=== PATIENT | male | born 1955 | race Caucasian/White ===

== ENCOUNTER 2019-05-29 04:44 | Inpatient (IN) | payer MEDICARE, MEDICAID ==
[2019-05-29] MEDS ORDERED: OLANzapine TAB*ODT* 10 MG TAB PO ONE (05:05)
--- NOTE | 2019-05-29 05:14 | ED ---
Psychiatric Complaint - HPI Summary HPI Summary: Pt is a 63 y/o M presenting to the ED with a chief psychiatric complaint. LEVEL 5 CAVEAT: Pts full hx and physical is limited d/t altered mental status. Per pt s brother, the pt has a long hx of mental illness beginning in his teens. He has a hx of delusional issues, and hes done reasonably well over the years. Since February, hes had increasingly worsening delusions and paranoia. [facility] Brother is unaware of why he was admitted or what happened while he was there. He was admitted for 3 days. - History Of Current Complaint Chief Complaint: EDMentalHealth Time Seen by Provider: 05/29/19 05:05 Accompanied By: brother Hx Obtained From: Family/Plant Production Worker - brother Onset/Duration: Gradual Onset, Lasting Weeks, Still Present Severity Initially: Moderate Severity Currently: Severe Character: Manic, Anxious Aggravating Factor(s): Nothing Alleviating Factor(s): Nothing Associated Signs And Symptoms: Positive: Hostile, Paranoid Behavior Related History: Positive For: Prior Psychiatric Issues - Allergies/Home Medications Allergies/Adverse Reactions: Allergies Allergy/AdvReac Type Severity Reaction Status Date / Time No Known Allergies Allergy Verified 05/29/19 04:47 PMH/Surg Hx/FS Hx/Imm Hx Previously Healthy: No - LEVEL 5 CAVEAT: Pts full hx and physical is limited d/ t AMS Infectious Disease History: No Infectious Disease History: Denies: Traveled Outside the [place] in Last 30 Days - Family History Known Family History: Positive: Other Family History: LEVEL 5 CAVEAT: Pts full hx and physical is limited d/t altered mental status. - Social History Alcohol Amount: LEVEL 5 CAVEAT: Pts full hx and physical is limited d/t altered mental sta Substance Use Comment - Amount & Last Used: LEVEL 5 CAVEAT: Pts full hx and physical is limited d/t altered mental sta Smoking Status (MU): Unknown if Ever Smoked - LEVEL 5 CAVEAT: Pts full hx and physical is limited d/t altered mental status. Review of Systems - ROS Summary Review of Systems Summary: LEVEL 5 CAVEAT: Pts full hx and physical is limited d/t altered mental status. Positive: Other - delusional, paranoid All Other Systems Reviewed And Are Negative: No Physical Exam - Summary Physical Exam Summary: Appearance: Well-appearing, Well-nourished, lying in bed Skin: Warm, dry, no obvious rash Eyes: sclera anicteric, no conjunctival pallor ENT: mucous membranes moist, pharynx appears normal Neck: Supple, nontender Respiratory: Clear to auscultation, no signs of respiratory distress Cardiovascular: Normal S1, S2. No murmurs. Normal distal pulses in tibial and radial bilaterally. Abdomen: Soft, nontender, normal active bowel sounds present Musculoskeletal: Normal, Strength/ROM Intact Neurological: A&Ox3, awake and alert, speech is hyperverbal. Psychiatric: Animated and agitated. Hyperverbal. Triage Information Reviewed: Yes Vital Signs On Initial Exam: Initial Vitals Temp Pulse Resp BP Pulse Ox 0 F 86 15 184/120 0 05/29/19 04:45 05/29/19 04:45 05/29/19 04:45 05/29/19 04:45 05/29/19 04:45 Vital Signs Reviewed: Yes Completion Of Physical Exam Limited Due To: Altered Mental Status, Level 5 Procedures - Sedation Patient Received Moderate/Deep Sedation with Procedure: No Diagnostics - Vital Signs Vital Signs Temp Pulse Resp BP Pulse Ox 05/29/19 04:45 0 F 86 15 184/120 0 - Laboratory Result Diagrams: 05/29/19 05:12 05/29/19 05:12 Lab Statement: Any lab studies that have been ordered have been reviewed, and results considered in the medical decision making process. Course/Dx - Course Course Of Treatment: Pt is a 63 y/o M presenting to the ED with a chief psychiatric complaint. LEVEL 5 CAVEAT: Pts full hx and physical is limited d/t altered mental status. Per pts brother, the pt has a long hx of mental illness beginning in his teens. He has a hx of delusional issues, and hes done reasonably well over the years. Since February, hes had increasingly worsening delusions and paranoia. He was recently seen at [facility]. Brother is unaware of why he was admitted or what happened while he was there. He was admitted for 3 days. Pt's exam is nml aside from being animated and agitated. He is also hyperverbal. Pt will be signed out to Dr. Calle at 0700 on pending MHE. - Differential Dx/Clinical Impression Provider Diagnosis: Acute psychosis Discharge ED - Sign-Out/Discharge Documenting (check all that apply): Sign-Out Patient Signing out patient TO: Kevin Calle - Discharge Plan Condition: Stable - Billing Disposition and Condition Condition: STABLE - Attestation Statements Document Initiated by Cindyibe: Yes Documenting Scribe: Rosa Sow Provider For Whom Carliee is Documenting (Include Credential): Murtaza Dockery MD. Scribe Attestation: Rosa Prado, carlieed for Murtaza Dockery MD. on 05/29/19 at 0643. Scribe Documentation Reviewed: Yes Provider Attestation: The documentation as recorded by the cindyibe, Rosa Sow accurately reflects the service I personally performed and the decisions made by me, Murtaza Dockery MD. Status of Scribe Document: Viewed
[2019-05-29 05:21] LABS: ABS Lymphocytes 1.8 10^3/ul (1.0-4.8); ABS Monocytes 1.3 10^3/ul (0-0.8); Eosinophil % 0.4 %; Hematocrit 47 % (42-52); Hemoglobin 15.7 g/dL (14.0-18.0); Lymphocyte % 16.6 %; Mean Corpuscular HGB Conc 34 g/dL (31-36); Mean Corpuscular Hemoglobin 31 pg (27-31); Mean Corpuscular Volume 93 fL (80-94); Mean Platelet Volume 8.2 fL (7.4-10.4); Nucleated Red Blood Cells % 0.1; Platelet Count 253 10^3/uL (150-450); Red Blood Count 5.01 10^6 /uL (4.18-5.48); Red Cell Distribution Width 14 % (10-15); White Blood Count 11.2 10^3/uL (3.5-10.8)
[2019-05-29] MEDS ORDERED: LORazepam TAB(*) 1 MG PO ONE (05:24)
[2019-05-29 05:32] LABS: Albumin 4.1 g/dL (3.2-5.2); Anion Gap 8 mmol/L (2-11); CO2 Carbon Dioxide 24 mmol/L (22-32); Calcium 9.7 mg/dL (8.6-10.3); Chloride 102 mmol/L (101-111); Potassium 3.6 mmol/L (3.5-5.0); Sodium 134 mmol/L (135-145)
[2019-05-29 05:38] LABS: ALT 41 U/L (7-52); AST 50 U/L (13-39); Albumin/Globulin Ratio 1.3 (1-3); Alkaline Phosphatase 76 U/L (34-104); BUN/Creatinine Ratio 22.7 (8-20); Blood Urea Nitrogen 17 mg/dL (6-24); EGFR African American 127.3 (>60); EGFR Non-African American 105.2 (>60); Globulin 3.1 g/dL (2-4); Glucose 150 mg/dL (70-100); Total Protein 7.2 g/dL (6.4-8.9)
[2019-05-29 06:06] LABS: Acetaminophen < 15 mcg/mL; Alcohol < 10 mg/dL (<10); Salicylate < 2.50 mg/dL (<30)
[2019-05-29 06:19] LABS: TSH (Thyroid Stimulating Horm) 2.26 mcIU/mL (0.34-5.60)
--- NOTE | 2019-05-29 07:28 | ED ---
Progress - Progress Note Progress Note: Patient is received as a sign-out from Dr. Dockery to Dr. Nickerson at 0700 shift change pending MHE. Course/Dx - Course Course Of Treatment: Pt is a 63 y/o M presenting to the ED with a chief psychiatric complaint. LEVEL 5 CAVEAT: Pts full hx and physical is limited d/t altered mental status. Per pts brother, the pt has a long hx of mental illness beginning in his teens. He has a hx of delusional issues, and hes done reasonably well over the years. Since February, hes had increasingly worsening delusions and paranoia. He was recently seen at [facility]. Brother is unaware of why he was admitted or what happened while he was there. He was admitted for 3 days. Pt's exam is nml aside from being animated and agitated. He is also hyperverbal. Pt will be signed out to Dr. Nickerson at 0700 on pending MHE. - Diagnoses Provider Diagnoses: Bipolar disorder - Provider Notifications Discussed Care Of Patient With: Fred Kruger Time Discussed With Above Provider: 12:33 Instructed by Provider To: Other - Patient's case was reviewed by Dr. Kruger. Patient is admitted [place] [facility] [place] on an involuntary basis. Discharge ED - Sign-Out/Discharge Documenting (check all that apply): Patient Departure - admit, Receiving Sign- Out Receiving patient FROM: Murtaza Dockery - Discharge Plan Condition: Stable Disposition: [facility]CHIATRIC FAC[facility] Referrals: No Primary Care Phys,[facility]OPCP [Primary Care Provider] - - Billing Disposition and Condition Condition: STABLE Disposition: Psychiatric Facility [facility] - Attestation Statements Document Initiated by Albina: Yes Documenting Scribe: ESTELA ACEVES Provider For Whom Albina is Documenting (Include Credential): EWA NICKERSON MD Scribe Attestation: Johan, ESTELA ACEVES, scribed for EWA NICKERSON MD on 05/29/19 at 1619. Scribe Documentation Reviewed: Yes Provider Attestation: The documentation as recorded by the ESTELA bates accurately reflects the service I personally performed and the decisions made by me, EWA NICKERSON MD Status of Scribe Document: Viewed
[2019-05-29] MEDS ORDERED: Acetaminophen TAB* 325 MG PO PRN (12:53)
[2019-05-29] MEDS ORDERED: Al Hydrox/Mg Hydrox/Simet LIQ* 30 ML UDC PO PRN (12:53)
[2019-05-29 12:54] LABS: Urine Benzodiazepine Screen None Detected (None Detect); Urine Opiates Screen None Detected (None Detect)
[2019-05-29 15:58] LABS: Urine Appearance Clear; Urine Bilirubin Negative (Negative); Urine Blood Negative (Negative); Urine Color Yellow; Urine Glucose Negative (Negative); Urine Ketones Negative (Negative); Urine Nitrite Negative (Negative); Urine Protein Negative (Negative); Urine Specific Gravity 1.006 (1.010-1.030); Urine Urobilinogen Negative (Negative)
[2019-05-29] MEDS: LORazepam TAB(*) 1 MG PO PRN (20:09)
[2019-05-30 08:18] LABS: HDL Cholesterol 46.7 mg/dL
[2019-05-30] MEDS ORDERED: OLANzapine TAB* 10 MG PO SCH (09:00)
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
[2019-05-30] MEDS ORDERED: Iohexol 300* (CONTRAST) 10 ML SDV IV ONE (11:43)
[2019-05-30] MEDS: Multivitamins/Minerals TAB PO SCH (14:23)
[2019-05-30] MEDS ORDERED: diPHENhydraMINE PO* 50 MG PO PRN (15:30)
[2019-05-30] MEDS: Paliperidone ER TAB* 6 MG TAB.ER PO SCH (20:42)
[2019-05-30] MEDS ORDERED: OLANzapine TAB*ODT* 5 MG PO SCH (21:00)
[2019-05-31] MEDS: LORazepam TAB(*) 1 MG PO PRN (05:15)
[2019-05-31] MEDS: Multivitamins/Minerals TAB PO SCH (09:35)
--- NOTE | 2019-05-31 10:49 | PN ---
Subjective - Subjective Date of Service: 05/31/19 Service Type: 02848 Hosp care 35 min high complexity Subjective: CC " I cant take medication" Patient slept a couple of hours overnight. patient has been conformational with peers and has threatened his roommate and other peers and has been disruptive in groups. Patient refusing to take medications. Patient believes he had a stroke, and thinks that he does not have mental illness. Objective - General Observations Appearance: Disheveled Appears Stated Age: Yes Stature: WNL Posture: Tense Eye Contact: Intense Behavior/Activity: Accelerated - Interaction Observations Attitude Towards Examiner: Uncooperative Stated Mood: Elevated Affect: Incongruent Speech Pattern/Tone: Rambling Thought Process: Disorganized, Loose Associations Perception: WNL Thought Content: Grandiose Hallucination Type: Denies Delusion Type: Grandeur - Cognitive Function Orientation: A&O x 4 Level of Consciousness: Awake Ability to Make Reasonable Decisions: Serverely Impaired - Medication Compliance Cooperative with Inpatient Medication Regimen: No - Group Participation Participates in Group Activities: No Assessment - Assessment Merits Inpatient Hospitalization: For Immediate Safety Clinical Impression: 63 year old with history of bipolar disorder came to the hospital with disorganized behavior and was admitted to the BSU at [facility]. Plan - Plan Treatment Plan: Name: NIGEL FISCHER Birthdate: 1955 [id number] # Q15 minute observation. # At this time restrict from groups due to disruption. # Patient is minimizing symptoms and provides inaccurate medical and psychiatric history # The patient requires psychiatric inpatient admission at this time to assure safety, receive treatment and work toward stabilization. # EKG ordered and showed [facility] Hospitalist team to evaluate patient today and order ECHO # Obtained collateral information from mother and brother Heriberto # Collaboration with Social Work # CT brain with and without contrast completed and show no intracranial abnormality # Continue Invega 6mg po qhs # Will complete TOO if patient continues to refuse treatment # Will consider Invega long acting injection to increase compliance # Patient has multiple hospitalizations and may require state referral #Goals before discharge include: Psychiatric stabilization Tentative Discharge: Pending psychiatric stabilization Sodium 134 mmol/L (135-145) L 05/29/19 05:12 Potassium 3.6 mmol/L (3.5-5.0) 05/29/19 05:12 BUN 17 mg/dL (6-24) 05/29/19 05:12 Creatinine 0.75 mg/dL (0.67-1.17) 05/29/19 05:12 Hemoglobin A1c 5.8 % (4.0-5.6) H 05/30/19 07:41 Calcium 9.7 mg/dL (8.6-10.3) 05/29/19 05:12 AST 50 U/L (13-39) H 05/29/19 05:12 ALT 41 U/L (7-52) 05/29/19 05:12 Triglycerides 116 mg/dL 05/30/19 07:41 Cholesterol 153 mg/dL 05/30/19 07:41 LDL Cholesterol 83 mg/dL 05/30/19 07:41 Continued Medication Management: Start Medication Medications: Current Medications Acetaminophen (Tylenol Tab*) 650 mg PO Q4H PRN PRN Reason: for pain; or Temp >101 F Last Admin: 05/30/19 21:49 Dose: 650 mg Al Hydrox/Mg Hydrox/Simethicone (Maalox Plus*) 30 ml PO Q4H PRN PRN Reason: INDIGESTION Diphenhydramine HCl (Benadryl Po*) 50 mg PO BEDTIME PRN PRN Reason: INSOMNIA Lorazepam (Ativan Tab(*)) 1 mg PO Q6H PRN PRN Reason: ANXIETY Last Admin: 05/31/19 05:15 Dose: 1 mg Multivitamins/Minerals (Theragran/Minerals Tab*) 1 tab PO DAILY [facility] Last Admin: 05/31/19 09:35 Dose: 1 tab Paliperidone (Invega Er Tab*) 6 mg PO 2100 [facility] Last Admin: 05/30/19 20:42 Dose: Not Given - Discharge Plan Discharge Plan: Inpatient Hospitalization
[2019-05-31] MEDS: Aspirin TAB* 325 MG PO PRN (11:18)
--- NOTE | 2019-05-31 11:24 | PN ---
BSU: Group Therapy Note - Service Type Service Type: [id number] Group Psychotherapy - Cognitive Behavioral Group Note: Al was attentive and participatory in group progamming this morning, but is intrusive in conversation and disorganized. He impresses as overvaluing his thoughts and comments, but is able to establish pleasant rapport. He impresses as having impaired insight and judgement regarding his symptoms and presenting problem, stating he came in for treatment of neurological assessment, not for psychiatric treatment. He remains unwilling to take prescribed medications, expcet for Ativan.
--- NOTE | 2019-05-31 13:42 | CONS ---
CC: Dr. Solomon, [facility]; Dr. Vee * CONSULTATION REPORT: DATE OF CONSULT: 05/31/19 PRIMARY CARE PROVIDER: Dr. Solomon, [facility]. REQUESTING PHYSICIAN IN CONSULTATION: Dr. Vee. ATTENDING PHYSICIAN: Dr. Seda Schultz (dictated by FELICITA Scott). REASON FOR CONSULT: EKG abnormality. HISTORY OF PRESENT ILLNESS/HOSPITAL COURSE: Mr. Ureña is a 63-year-old male with a past medical history of bipolar, possible history of hypertension, who presented to the ER yesterday and was admitted with bipolar, manic phase. In preparation to start new antipsychotics, an EKG was obtained and revealed T- wave inversions in II, III, aVF as well as ST elevation in V2 and V3. Because of this, the hospitalist team was asked to consult and make recommendations. The patient is seen in his room. He is mildly manic at this time and is difficult to get direct answers from. He does report that he follows with Dr. Solomon, a employment consultant in [place]. He states that he previously was on metoprolol 25, which he discontinued. He was then started on diltiazem 6.25, which he also discontinued, stating that both of these medications made him "feel tense." He has been off these medications for approximately 1 week. He believes that he was on these medications due to hypertension, but also notes that his blood pressure is well controlled. At this time, he denies chest pain , shortness of breath, diaphoresis, jaw or arm pain. He denies dizziness, lightheadedness, loss of consciousness, dysphagia, dysarthria. He denies abdominal pain, nausea, vomiting, diarrhea, constipation, myalgias or arthralgias, weight loss. PAST MEDICAL HISTORY: 1. Bipolar disorder. 2. Possible history of hypertension. PAST SURGICAL HISTORY: Wound repair x2. No history of surgical intervention. CURRENT MEDICATIONS: 1. Maalox Plus 30 mL p.o. q.4 hours p.r.n. indigestion. 2. Aspirin 325 mg p.o. daily p.r.n. mild pain. 3. Diphenhydramine 50 mg p.o. at bedtime p.r.n. insomnia. 4. Lorazepam 0.5 mg p.o. q.6 hours p.r.n. anxiety. 5. Multivitamin/minerals 1 tab p.o. daily. 6. Paliperidone 6 mg p.o. at 2100. DRUG ALLERGIES: METOPROLOL, dizziness, nausea; no true drug allergies. FAMILY HISTORY: The patient has a family history of NM, but he is unable to give further details. He denies history of cancer, diabetes, stroke. He also adds that there is no history of schizophrenia or bipolar. SOCIAL HISTORY: The patient does not use tobacco currently or in the past. He drinks about 6 alcoholic beverages per week. He does not use any recreational drugs. He works as a contractor, performing snow removal and painting. He is not . He has no children. He lives alone with his cat. He would not like to appoint surrogate decision maker at this time. REVIEW OF SYSTEMS: A 14-point review of systems has been performed and all the pertinent positives and negatives are in the HPI. All other systems are negative. PHYSICAL EXAM: Vital Signs: Temperature 98.8 temporal, heart rate 86, respiratory rate 16, oxygen saturation 100% on room air, blood pressure 115/81. General: Mr. Ureña is a well-developed, well-nourished, overweight, middle- aged white male, who is sitting up in bed. He appears somewhat disheveled and is having flight of ideas and is unable to stay on topic for very long before trailing off. He is very mildly agitated and would like to go home. He is otherwise cooperative. HEENT: PERRL. EOMI. Visual jones grossly intact. Hearing grossly intact. Oral mucous membranes are moist. There are no lesions. The pharynx is clear without exudates or erythema. Tongue is at midline. The palate elevates symmetrically. Cardiovascular: Regular rate and rhythm with S1, S2 present. No murmurs, rubs, clicks, or gallops. There is no JVD or peripheral edema. Pulmonary: Symmetrical chest expansion without use of accessory muscles. Diminished breath sounds throughout without wheezes, rhonchi, or rales. No digital clubbing or cyanosis. Abdomen: Bowel sounds in all quadrants. Soft, nontender to palpation. Musculoskeletal: Full range of motion without pain or deformity. Steady gait without impairment. Neuro: The patient is awake. He is alert and oriented x3. Cranial nerves II through XII are grossly intact. He is able to move all of his extremities with a motor strength of 5/5 bilaterally in the upper and lower extremities, equal business sales consultant strength. ASSESSMENT AND PLAN: Mr. Ureña is a 63-year-old male with a past medical history of bipolar disorder and possible history of hypertension, not on medications, who presented to the ER and was admitted for manic bipolar disorder. The hospitalist team was consulted regarding abnormalities on EKG. 1. Manic bipolar. Management per BSU. 2. EKG abnormalities. EKG was obtained to assess QT prior to starting antipsychotic medication. EKG revealed T-wave inversions in II, III, aVF as well as ST elevation in V2, V3. The patient denies chest pain. At this time, we will obtain an echo to further assess for left ventricular hypertrophy. Records have been requested from Dr. Solomon in [facility]. We will also request past EKGs. 3. DVT prophylaxis: Per BSU, ambulation. 4. Code status: Full code. TIME SPENT: Approximately 35 minutes was spent on this consultation, greater than half that time was spent [id number] with the patient obtaining history, performing physical, and reviewing the plan of care. The case has been discussed with my attending Dr. Schultz, who is in agreement with the plan of care. FELICITA IVY [id number]/[facility] #: [id number] AISHA
--- NOTE | 2019-05-31 14:54 | ECHO ---
*[facility]* [place] [address] Fax #: [phone] Transthoracic Echocardiogram Patient: Alex Ureña : 1955 Study Date: 05/31/2019 Age: 63 Gender: M HR: 86 bpm Height: 73 in /185.4 cm BSA: 2.18 m^2 Weight: 201.6 lb /91.6 kg BMI: 26.7 kg/m^2 *Trapeze Artist: * Yanique David RD *Referring Physician: * Sheba MilnerReading Physician: * Clari Juan MD Indications: Abnormal EKG. History: Mental health history. Conclusions Summary: - Left ventricle: The cavity size is normal. Wall thickness is mildly increased. Systolic function is at the lower limits of normal. The estimated ejection fraction is 50-55%. Wall motion is normal; there are no regional wall motion abnormalities. - Left atrium: The atrium is moderately dilated. - Right atrium: The atrium is mildly dilated. - Mitral valve: There is trace to mild regurgitation. - Aortic valve: The findings are consistent with borderline mild stenosis. There is trace to mild regurgitation. - Tricuspid valve: There is trace regurgitation. - Ascending aorta: The ascending aorta is moderately dilated. - No previous echocardiogram available. Study data: Transthoracic echocardiogram. Procedure: Transthoracic echocardiography was performed. Image quality was fair. The study was technically limited due to poor patient compliance. Complete 2D, spectral Doppler, and color flow Doppler. Location: Bedside. Patient status: Inpatient. Patient room number: 202. Rhythm: Normal sinus rhythm with PVC's. Findings Left ventricle: The cavity size is normal. Wall thickness is mildly increased. Systolic function is at the lower limits of normal. The estimated ejection fraction is 50-55%. Wall motion is normal; there are no regional wall motion abnormalities. Features are consistent with a pseudonormal left ventricular filling pattern, with concomitant abnormal relaxation and increased filling pressure (grade 2 diastolic dysfunction). Right ventricle: The cavity size is mildly to moderately dilated. Systolic function is normal. Left atrium: The atrium is moderately dilated. Right atrium: The atrium is mildly dilated. Mitral valve: The leaflets are mildly thickened. There is no evidence of stenosis. There is trace to mild regurgitation. Aortic valve: The valve is trileaflet. The leaflets are mildly thickened. Valve mobility is mildly restricted. The findings are consistent with borderline mild stenosis. There is trace to mild regurgitation. Tricuspid valve: The leaflets are normal thickness. There is no evidence of stenosis. There is trace regurgitation. Pulmonic valve: The leaflets are normal thickness. There is no evidence of stenosis. There is trace regurgitation. Aorta: Aortic root: The aortic root is mildly dilated. Ascending aorta: The ascending aorta is moderately dilated. Aortic arch: The aortic arch is appears normal. Pericardium: There is no significant pericardial effusion. Pulmonary arteries: The main pulmonary artery is normal-sized. Systolic pressure can not be accurately estimated. Systemic veins: Inferior vena cava: The vessel is dilated. There is (>= 50%) respiratory change in the IVC dimension. Measurements Left ventricle Value Ref Right atrium continued Value Ref JEAN CARLOS, LAX 4.6 cm 4.2 - ML dim, ES, A4C (H) 4.8 cm 2.6 - 4.4 5.8 Estimated RAP 8 mm Hg --------- ESD, LAX 3.8 cm 2.5 - 4.0 Aortic valve Value Ref FS, LAX (L) 17 % 25 - 43 Trudy diam, S 2.3 cm 2.0 - 3.2 PW, ED, LAX (H) 1.2 cm 0.6 - Peak v, S 1.97 m/sec --------- 1.0 VTI, S 36.4 cm --------- FS (L) 17 % 25 - 43 Mean grad, S 8.5 mm Hg --------- PW, ED (H) 1.2 cm 0.6 - Peak grad, S 15.5 mm Hg --------- 1.0 LVOT/AV, VTI ratio 0.5 --------- ALVARO, VTI 1.57 cm^2 --------- LVOT Value Ref ALVARO, Vmax 1.45 cm^2 --------- Diam, S 2.00 cm -------- Area 3.1 cm^2 -------- Mitral valve Value Ref Peak phillip, S 0.91 m/sec -------- Peak E 1 m/sec --------- VTI, S 18.2 cm -------- Peak A 0.79 m/sec --------- Peak grad, S 3 mm Hg -------- Decel time 137 ms --------- Mean grad, S 2 mm Hg -------- Peak grad, D 4.0 mm Hg --------- Peak E/A ratio 1.27 --------- Ventricular septum Value Ref IVS, ED (H) 1.1 cm 0.6 - Aortic root Value Ref 1.0 Root diam 3.9 cm <4.3 Right ventricle Value Ref Ascending aorta Value Ref JEAN CARLOS, LAX 4.0 cm -------- AAo AP diam, S 4.1 cm --------- JEAN CARLOS minor ax, A4C (H) 4.2 cm 1.9 - mid 3.5 Aortic arch Value Ref Arch diam 2.3 cm --------- Left atrium Value Ref LA ID 4.1 cm -------- Inferior vena cava Value Ref SI dim ES, LAX 4.1 cm -------- Diam 2.3 cm --------- ML dim, A4C 5.5 cm -------- SI dim, A4C 5.8 cm -------- Vol, ES, 2-p 102 ml -------- Vol/bsa, ES, 2-p (H) 47 ml/m^2 16 - 34 Right atrium Value Ref SI dim, ES (H) 5.7 cm 3.4 - 5.3 Legend: (L) and (H) reji values outside specified reference range. Prepared and electronically signed by Clari Juan MD 05/31/2019 14:53
[2019-05-31] MEDS: Paliperidone ER TAB* 6 MG TAB.ER PO SCH (22:07)
[2019-06-01] MEDS: Multivitamins/Minerals TAB PO SCH (08:38)
[2019-06-01] MEDS: Aspirin TAB* 325 MG PO PRN (09:45)
--- NOTE | 2019-06-01 12:09 | PN ---
Subjective - Subjective Date of Service: 06/01/19 Service Type: 17446 Hosp care 35 min high complexity Subjective: Nursing Report: Patient was visible on unit, Patient disruptive to groups, violating personal boundaries CC: "I don't want meds" Patient approached staff member from behind and grabbed them. Patient was seen and evaluated today in the consult room. The patient reported that all he needs is kale and garlic and does not need medications. He said " You can take me to court I know the overhead garage door hanger he is going to let me out of here." Patient is argumentative with peers and staff. Objective - General Observations Appearance: Disheveled Appears Stated Age: Yes Stature: WNL Posture: Slumped Eye Contact: Intense Behavior/Activity: Accelerated - Interaction Observations Attitude Towards Examiner: Demanding, Ingratiating Stated Mood: Expansive Affect: Incongruent Speech Pattern/Tone: Inappropriate, Rambling Thought Process: Loose Associations Perception: Depersonalization Thought Content: Grandiose Hallucination Type: None Delusion Type: Grandeur - Cognitive Function Orientation: A&O x 4 Level of Consciousness: Awake Judgment Within Normal Limits: No Ability to Make Reasonable Decisions: Serverely Impaired - Medication Compliance Cooperative with Inpatient Medication Regimen: No - Group Participation Participates in Group Activities: No Assessment - Assessment Merits Inpatient Hospitalization: For Immediate Safety Clinical Impression: 63 year old with history of bipolar disorder came to the hospital with disorganized behavior and was admitted to the [facility] at [facility]. Plan - Plan Treatment Plan: Name: NIGEL FISCHER Birthdate: 1955 [id number] # Q15 minute observation. # At this time restrict from groups due to disruption. # Patient is minimizing symptoms and provides inaccurate medical and psychiatric history # The patient requires psychiatric inpatient admission at this time to assure safety, receive treatment and work toward stabilization. # ECHO results completed and show mild thickness see report for more details, will recommend outpatient follow up. # Obtained collateral information from mother and his brother Heriberto # Collaboration with Social Work # CT brain with and without contrast completed and show no intracranial abnormality # Continue Invega 6mg po qhs # Patient continues to refuse medications. TOO paperwork completed # Consider Invega long acting injection to increase compliance # Patient has multiple hospitalizations and requires [facility] hospital referral #Goals before discharge include: Psychiatric stabilization Tentative Discharge: Pending psychiatric stabilization Sodium 134 mmol/L (135-145) L 12/10/19 05:12 Potassium 3.6 mmol/L (3.5-5.0) 05/29/19 05:12 BUN 17 mg/dL (6-24) 05/29/19 05:12 Creatinine 0.75 mg/dL (0.67-1.17) 05/29/19 05:12 Hemoglobin A1c 5.8 % (4.0-5.6) H 05/30/19 07:41 Calcium 9.7 mg/dL (8.6-10.3) 05/29/19 05:12 AST 50 U/L (13-39) H 05/29/19 05:12 ALT 41 U/L (7-52) 05/29/19 05:12 Triglycerides 116 mg/dL 05/30/19 07:41 Cholesterol 153 mg/dL 05/30/19 07:41 LDL Cholesterol 83 mg/dL 05/30/19 07:41 Continued Medication Management: Continue Outpt Medication Medications: Current Medications Al Hydrox/Mg Hydrox/Simethicone (Maalox Plus*) 30 ml PO Q4H PRN PRN Reason: INDIGESTION Aspirin (Aspirin Tab*) 325 mg PO DAILY PRN PRN Reason: PAIN - MILD Last Admin: 06/01/19 09:45 Dose: 325 mg Diphenhydramine HCl (Benadryl Po*) 50 mg PO BEDTIME PRN PRN Reason: INSOMNIA Lorazepam (Ativan Tab(*)) 0.5 mg PO Q6H PRN PRN Reason: ANXIETY Multivitamins/Minerals (Theragran/Minerals Tab*) 1 tab PO DAILY [facility] Last Admin: 06/01/19 08:38 Dose: 1 tab Paliperidone (Invega Er Tab*) 6 mg PO 2100 [facility] Last Admin: 05/31/19 22:07 Dose: Not Given - Discharge Plan Discharge Plan: Inpatient Hospitalization
[2019-06-01] MEDS: Paliperidone ER TAB* 6 MG TAB.ER PO SCH (21:40)
[2019-06-02] MEDS ORDERED: diPHENhydraMINE IV* 50 MG/ML 1 ml VIAL (BENADRYL) IM ONE (01:05)
[2019-06-02] MEDS ORDERED: LORazepam INJ* 2 MG/ML 1 ML VIAL IM ONE (01:05)
[2019-06-02] MEDS ORDERED: Haloperidol INJ IV/IM* 5 MG/ML AMP IM ONE (01:05)
[2019-06-02] MEDS ORDERED: diPHENhydraMINE IV* 50 MG/ML 1 ml VIAL (BENADRYL) ONE (01:07)
[2019-06-02] MEDS ORDERED: Haloperidol INJ IV/IM* 5 MG/ML AMP ONE (01:08)
[2019-06-02] MEDS ORDERED: LORazepam INJ* 2 MG/ML 1 ML VIAL ONE (01:08)
--- NOTE | 2019-06-02 08:00 | PN ---
Subjective Date of Service: 06/02/19 Interval History: Patient asleep and awakens easily to voice. Says he is agreeable to EKG today. He denies chest pain, difficulty breathing, LE edema. Objective Active Medications: Al Hydrox/Mg Hydrox/Simethicone (Maalox Plus*) 30 ml PO Q4H PRN PRN Reason: INDIGESTION Aspirin (Aspirin Tab*) 325 mg PO DAILY PRN PRN Reason: PAIN - MILD Last Admin: 06/01/19 09:45 Dose: 325 mg Carvedilol (Coreg Tab*) 6.25 mg PO DAILY [facility] Diphenhydramine HCl (Benadryl Po*) 50 mg PO BEDTIME PRN PRN Reason: INSOMNIA Lorazepam (Ativan Tab(*)) 0.5 mg PO Q6H PRN PRN Reason: ANXIETY Multivitamins/Minerals (Theragran/Minerals Tab*) 1 tab PO DAILY [facility] Last Admin: 06/01/19 08:38 Dose: 1 tab Paliperidone (Invega Er Tab*) 6 mg PO 2100 [facility] Last Admin: 06/01/19 21:40 Dose: Not Given Simvastatin (Zocor (Nf)) 40 mg PO DAILY [facility] Vital Signs - 8 hr 06/02/19 06/02/19 06/02/19 01:10 05:22 05:23 Respiratory 18 18 18 Rate Oxygen Devices in Use Now: None Appearance: WDWN White male, laying in bed, resting comfortably, awakens easily to voice, appearing in NAD Eyes: No Scleral Icterus, - - PERRL Ears/Nose/Mouth/Throat: Mucous Membranes Moist Neck: Trachea Midline Respiratory: Symmetrical Chest Expansion and Respiratory Effort, Clear to Auscultation Cardiovascular: NL Sounds; No Murmurs; No JVD, RRR Abdominal: - - abd soft, nontender, nondistended Extremities: No Edema, No Clubbing, Cyanosis Skin: No Rash or Ulcers Neurological: Alert and Oriented x 3, NL Muscle Strength and Tone Result Diagrams: 05/29/19 05:12 05/29/19 05:12 Assess/Plan/Problems-Billing Assessment: 63 yo male with PMHx HTN and bipolar disorder is admitted to the BSU for a manic episode, found to have EKG changes. Hospital medicine has been consulted. - Patient Problems (1) EKG abnormalities Current Visit: Yes Status: Acute Code(s): R94.31 - ABNORMAL ELECTROCARDIOGRAM [ECG] [EKG] SNOMED Code(s): 704245945 Comment: -the EKG changes found on initial EKG at admission were consistent with left ventricular hypertrophy, which was demonstrated on echocardiogram -outpatient cardiology records obtained. EKG outpatient on 05/22/19 demonstrates T wave flattening in lead III and aVF, therefore the T wave inversions during this hospitalization were possibly related to lead placement. Unfortunately, the patient was refusing repeat EKG. Reportedly he stated to nursing staff, "If you won't let me watch the news then I won't let you get an EKG." However, he is agreeable this AM. -echo without wall motion abnormalities -no anginal sxs -no concern for ACS at this time (2) Heart failure with preserved ejection fraction Current Visit: Yes Status: Acute Code(s): I50.30 - UNSPECIFIED DIASTOLIC ( CONGESTIVE) HEART FAILURE SNOMED Code(s): 399919080 Comment: -echocardiogram performed in this hospitalization demonstrated grade 2 diastolic heart failure -no c/o dyspnea and no LE edema. No diuresis needed at this time (3) Paroxysmal SVT (supraventricular tachycardia) Current Visit: Yes Status: Acute Code(s): I47.1 - SUPRAVENTRICULAR TACHYCARDIA SNOMED Code(s): 75242484 Comment: -outpatient cardiology records listed a history of paroxysmal SVT -outpatient prescription history demonstrates recent prescriptions for carvedilol. Home medication list updated and ordered this for his hospital stay -rate controlled since being in BSU (4) History of hyperlipidemia Current Visit: Yes Status: Acute Code(s): Z86.39 - PERSONAL HISTORY OF ENDO , NUTRITIONAL AND METABOLIC DISEASE SNOMED Code(s): 990132802 Comment: -patient started on simvastatin outpatient. Home medication list updated and ordered this for his hospital stay -LDL 83 during this hospitalization which is acceptable -will continue a statin while on BSU but could possibly be discontinued outpatient. He should follow up with his sculpture conservator as regularly scheduled (5) Manic episode Current Visit: Yes Status: Acute Code(s): F30.9 - MANIC EPISODE, UNSPECIFIED SNOMED Code(s): 498232682 Comment: -management per primary psychiatry team Status and Disposition: disposition per primary psychiatry team. I will sign off at this time. If the patient allows EKG today, I will addend this note with my interpretation. Please call the hospitalist team if there are any medicine needs or further questions while this patient is hospitalized.
[2019-06-02] MEDS ORDERED: Carvedilol TAB* 6.25 MG PO SCH (09:00)
[2019-06-02] MEDS: Carvedilol TAB* 6.25 MG PO SCH ×2 (11:38→21:47)
[2019-06-02] MEDS: Atorvastatin* 20 MG TAB PO SCH (11:38)
[2019-06-02] MEDS: Multivitamins/Minerals TAB PO SCH (11:39)
--- NOTE | 2019-06-02 14:33 | PN ---
Subjective - Subjective Date of Service: 06/02/19 Service Type: 17163 Hosp care 15 min low complexity Subjective: Nigel is seen in weekend coverage for Dr. Vee. He had a difficult night last night and was agitated and not redirectable, receiving an IM stat B52 around 01:00. Currently he is resting comfortably in bed. "Yeah, Casing Builder Jose' s a good friend of mine. He's gonna spring me outta here by the ." He denies SI or HI. Objective - General Observations Appearance: Disheveled Appears Stated Age: Yes Stature: WNL Posture: WNL Eye Contact: Intense Behavior/Activity: Accelerated - Interaction Observations Attitude Towards Examiner: Ingratiating Stated Mood: Irritable Affect: Labile Speech Pattern/Tone: Pressured Thought Process: Tangential Thought Content: Grandiose Thought Process: Lethality: Paranoid Ideation Hallucination Type: None Delusion Type: Persecution - Cognitive Function Orientation: A&O x 4 Level of Consciousness: Awake Cognition: WNL Estimated Intelligence: Normal Insight: Difficulty Acknowledging Presence of Psyciatric Problems Judgment Within Normal Limits: No Ability to Make Reasonable Decisions: Serverely Impaired - Medication Compliance Cooperative with Inpatient Medication Regimen: No - Group Participation Participates in Group Activities: No Assessment - Assessment Merits Inpatient Hospitalization: For Immediate Safety, For Stabilization Inpatient DSM-V Dx: F25.0 Clinical Impression: 63 year old with history of bipolar disorder came to the hospital with disorganized behavior and was admitted to the [facility] at [facility]. Plan - Plan Treatment Plan: Name: NIGEL FISCHER Birthdate: 1955 [id number] # Q15 minute observation. # At this time restrict from groups due to disruption. # Patient is minimizing symptoms and provides inaccurate medical and psychiatric history # The patient requires psychiatric inpatient admission at this time to assure safety, receive treatment and work toward stabilization. # ECHO results completed and show mild thickness see report for more details, will recommend outpatient follow up. # Obtained collateral information from mother and his brother Heriberto # Collaboration with Social Work # CT brain with and without contrast completed and show no intracranial abnormality # Continue Invega 6mg po qhs # Patient continues to refuse medications. TOO paperwork completed # Consider Invega long acting injection to increase compliance # Patient has multiple hospitalizations and requires state hospital referral #Goals before discharge include: Psychiatric stabilization Tentative Discharge: Pending psychiatric stabilization Sodium 134 mmol/L (135-145) L 05/29/19 05:12 Potassium 3.6 mmol/L (3.5-5.0) 05/29/19 05:12 BUN 17 mg/dL (6-24) 05/29/19 05:12 Creatinine 0.75 mg/dL (0.67-1.17) 05/29/19 05:12 Hemoglobin A1c 5.8 % (4.0-5.6) H 05/30/19 07:41 Calcium 9.7 mg/dL (8.6-10.3) 05/29/19 05:12 AST 50 U/L (13-39) H 05/29/19 05:12 ALT 41 U/L (7-52) 05/29/19 05:12 Triglycerides 116 mg/dL 05/30/19 07:41 Cholesterol 153 mg/dL 05/30/19 07:41 LDL Cholesterol 83 mg/dL 05/30/19 07:41 Continued Medication Management: Start Medication Medications: Current Medications Al Hydrox/Mg Hydrox/Simethicone (Maalox Plus*) 30 ml PO Q4H PRN PRN Reason: INDIGESTION Aspirin (Aspirin Tab*) 325 mg PO DAILY PRN PRN Reason: PAIN - MILD Last Admin: 06/01/19 09:45 Dose: 325 mg Atorvastatin Calcium (Lipitor*) 20 mg PO DAILY [facility] Last Admin: 06/02/19 11:38 Dose: 20 mg Carvedilol (Coreg Tab*) 6.25 mg PO BID [facility] Last Admin: 06/02/19 11:38 Dose: 6.25 mg Diphenhydramine HCl (Benadryl Po*) 50 mg PO BEDTIME PRN PRN Reason: INSOMNIA Lorazepam (Ativan Tab(*)) 0.5 mg PO Q6H PRN PRN Reason: ANXIETY Multivitamins/Minerals (Theragran/Minerals Tab*) 1 tab PO DAILY [facility] Last Admin: 06/02/19 11:39 Dose: Not Given Paliperidone (Invega Er Tab*) 6 mg PO 2100 [facility] Last Admin: 06/01/19 21:40 Dose: Not Given - Discharge Plan Discharge Plan: Inpatient Hospitalization
[2019-06-02] MEDS: LORazepam TAB(*) 0.5 MG PO PRN (19:36)
[2019-06-02] MEDS: Paliperidone ER TAB* 6 MG TAB.ER PO SCH (21:48)
[2019-06-03] MEDS: LORazepam TAB(*) 0.5 MG PO PRN ×2 (00:12→19:34)
[2019-06-03] MEDS: Atorvastatin* 20 MG TAB PO SCH (08:47)
[2019-06-03] MEDS: Carvedilol TAB* 6.25 MG PO SCH ×2 (08:47→19:36)
[2019-06-03] MEDS: Multivitamins/Minerals TAB PO SCH (08:47)
[2019-06-03] MEDS: Aspirin TAB* 325 MG PO PRN (13:46)
[2019-06-03] MEDS: Paliperidone ER TAB* 6 MG TAB.ER PO SCH (19:35)
[2019-06-04] MEDS: Multivitamins/Minerals TAB PO SCH (07:45)
[2019-06-04] MEDS: Atorvastatin* 20 MG TAB PO SCH (07:45)
[2019-06-04] MEDS: Carvedilol TAB* 6.25 MG PO SCH ×2 (07:45→20:03)
--- NOTE | 2019-06-04 10:49 | PN ---
Subjective - Subjective Date of Service: 06/04/19 Service Type: [id number] Hosp care 35 min high complexity Subjective: Nursing Report: Patient was visible on unit, patient has been disruptive demanding and writing on the wall, received haldol/ ativan IM over the weekend CC: "I dont want to have to take you to court" Patient was seen and evaluated in the common room. The patient reported he does not want to take medications. Patients mother is expected to visit today. The patient has been refusing medications. Patient wrote sexually inappropriate things on the wall. Objective - General Observations Appearance: Disheveled Appears Stated Age: Yes Stature: WNL Posture: Tense Eye Contact: Avoidant Behavior/Activity: Peculiar - Interaction Observations Attitude Towards Examiner: Demanding Stated Mood: Irritable, Angry Affect: Restricted Speech Pattern/Tone: Inappropriate, Rambling Thought Process: Loose Associations, Flight of Ideas Perception: WNL Thought Content: Grandiose Thought Process: Lethality: Paranoid Ideation Hallucination Type: Denies Delusion Type: Denies - Cognitive Function Orientation: A&O x 4 Level of Consciousness: Awake Judgment Within Normal Limits: No Ability to Make Reasonable Decisions: Serverely Impaired - Medication Compliance Cooperative with Inpatient Medication Regimen: No - Group Participation Participates in Group Activities: No Assessment - Assessment Merits Inpatient Hospitalization: For Immediate Safety Inpatient DSM-V Dx: F25.0 Clinical Impression: 63 year old with history of bipolar disorder came to the hospital with disorganized behavior and was admitted to the BSU at [facility]. Plan - Plan Treatment Plan: Name: NIGEL FISCHER Birthdate: 1955 [id number] # Q15 minute observation. # At this time restrict from groups due to disruption. # Patient is minimizing symptoms and provides inaccurate medical and psychiatric history # The patient requires psychiatric inpatient admission at this time to assure safety, receive treatment and work toward stabilization. # ECHO results completed and results show diastolic heart failure and mild thickness see report for more details, consultants recommend outpatient follow up. # Obtained collateral information from mother and his brother Heriberto # Collaboration with Social Work # CT brain with and without contrast completed and show no intracranial abnormality # Continue Invega 6mg po qhs # Patient continues to refuse medications. TOO paperwork completed and court planed for June 11 at 2pm # Once tolerability established will consider invega long acting injection to increase compliance # Patient has multiple hospitalizations and displays chronic and persistent mental illness requiring state hospitalization. #Goals before discharge include: Psychiatric stabilization Tentative Discharge: Pending psychiatric stabilization Sodium 134 mmol/L (135-145) L 05/29/19 05:12 Potassium 3.6 mmol/L (3.5-5.0) 05/29/19 05:12 BUN 17 mg/dL (6-24) 05/29/19 05:12 Creatinine 0.75 mg/dL (0.67-1.17) 05/29/19 05:12 Hemoglobin A1c 5.8 % (4.0-5.6) H 05/30/19 07:41 Calcium 9.7 mg/dL (8.6-10.3) 05/29/19 05:12 AST 50 U/L (13-39) H 05/29/19 05:12 ALT 41 U/L (7-52) 05/29/19 05:12 Triglycerides 116 mg/dL 05/30/19 07:41 Cholesterol 153 mg/dL 05/30/19 07:41 LDL Cholesterol 83 mg/dL 05/30/19 07:41 Continued Medication Management: Continue Outpt Medication Medications: Current Medications Al Hydrox/Mg Hydrox/Simethicone (Maalox Plus*) 30 ml PO Q4H PRN PRN Reason: INDIGESTION Aspirin (Aspirin Tab*) 325 mg PO DAILY PRN PRN Reason: PAIN - MILD Last Admin: 06/03/19 13:46 Dose: 325 mg Atorvastatin Calcium (Lipitor*) 20 mg PO DAILY [facility] Last Admin: 06/04/19 07:45 Dose: 20 mg Carvedilol (Coreg Tab*) 6.25 mg PO BID [facility] Last Admin: 06/04/19 07:45 Dose: 6.25 mg Diphenhydramine HCl (Benadryl Po*) 50 mg PO BEDTIME PRN PRN Reason: INSOMNIA Last Admin: 06/04/19 02:15 Dose: 50 mg Lorazepam (Ativan Tab(*)) 0.5 mg PO Q6H PRN PRN Reason: ANXIETY Last Admin: 06/03/19 19:34 Dose: 0.5 mg Multivitamins/Minerals (Theragran/Minerals Tab*) 1 tab PO DAILY [facility] Last Admin: 06/04/19 07:45 Dose: 1 tab Paliperidone (Invega Er Tab*) 6 mg PO 2100 [facility] Last Admin: 06/03/19 19:35 Dose: Not Given - Discharge Plan Discharge Plan: Inpatient Hospitalization
[2019-06-04] MEDS ORDERED: OLANzapine TAB*ODT* 10 MG TAB PO PRN (12:04)
[2019-06-04] MEDS: Ibuprofen TAB* 600 MG PO PRN (15:19)
[2019-06-04] MEDS: Paliperidone ER TAB* 6 MG TAB.ER PO SCH (20:08)
[2019-06-05] MEDS: LORazepam TAB(*) 0.5 MG PO PRN (02:23)
[2019-06-05] MEDS: Multivitamins/Minerals TAB PO SCH (08:55)
[2019-06-05] MEDS: Carvedilol TAB* 6.25 MG PO SCH ×2 (08:56→22:02)
[2019-06-05] MEDS: Atorvastatin* 20 MG TAB PO SCH (08:56)
--- NOTE | 2019-06-05 09:58 | PN ---
Subjective - Subjective Date of Service: 06/05/19 Service Type: [id number] Hosp care 35 min high complexity Subjective: Nursing Report: Patient was visible on unit, intrusive to others, disorganized CC: "I just need fish oil." Patient was seen and evaluated in the common room. The patient reported he just needs fish oil and then he will be ready for discharge. Patient wrote inappropriate things on the wall. Patient harassing other peers on the unit. Patient unable to follow staff re direction. Objective - General Observations Appearance: Disheveled Appears Stated Age: Yes Stature: WNL Posture: Tense Eye Contact: Intense Behavior/Activity: Peculiar, Impulsive - Interaction Observations Attitude Towards Examiner: Defensive, Hostile, Dismissive Stated Mood: Elevated Affect: Restricted Speech Pattern/Tone: Rambling Thought Process: Loose Associations Perception: Reexperiencing Thought Content: Grandiose Hallucination Type: None Delusion Type: Grandeur - Cognitive Function Orientation: A&O x 4 Level of Consciousness: Awake Ability to Make Reasonable Decisions: Serverely Impaired - Medication Compliance Cooperative with Inpatient Medication Regimen: No - Group Participation Participates in Group Activities: No Assessment - Assessment Merits Inpatient Hospitalization: For Immediate Safety Inpatient DSM-V Dx: F25.0 Clinical Impression: 63 year old with history of bipolar disorder came to the hospital with disorganized behavior and was admitted to the BSU at [facility]. Plan - Plan Treatment Plan: Name: NIGEL FISCHER Birthdate: 1955 [id number] # Q15 minute observation. # At this time restrict from groups due to disruption. # Patient is minimizing symptoms and provides inaccurate medical and psychiatric history # The patient requires psychiatric inpatient admission at this time to assure safety, receive treatment and work toward stabilization. # ECHO results completed and results show diastolic heart failure and mild thickness see report for more details, consultants recommend outpatient follow up. # Obtained collateral information from mother and his brother Heriberto # Collaboration with Social Work # CT brain with and without contrast completed and show no intracranial abnormality # Continue Invega 6mg po qhs # Patient continues to refuse medications. TOO paperwork completed and court planed for June 11 at 2pm # Once tolerability established will consider invega long acting injection to increase compliance # Patient has multiple hospitalizations and displays chronic and persistent mental illness requiring state hospitalization. #Goals before discharge include: Psychiatric stabilization Tentative Discharge: Pending psychiatric stabilization Sodium 134 mmol/L (135-145) L 05/29/19 05:12 Potassium 3.6 mmol/L (3.5-5.0) 05/29/19 05:12 BUN 17 mg/dL (6-24) 05/29/19 05:12 Creatinine 0.75 mg/dL (0.67-1.17) 05/29/19 05:12 Hemoglobin A1c 5.8 % (4.0-5.6) H 05/30/19 07:41 Calcium 9.7 mg/dL (8.6-10.3) 05/29/19 05:12 AST 50 U/L (13-39) H 05/29/19 05:12 ALT 41 U/L (7-52) 05/29/19 05:12 Triglycerides 116 mg/dL 05/30/19 07:41 Cholesterol 153 mg/dL 05/30/19 07:41 LDL Cholesterol 83 mg/dL 05/30/19 07:41 Continued Medication Management: Continue Outpt Medication Medications: Current Medications Al Hydrox/Mg Hydrox/Simethicone (Maalox Plus*) 30 ml PO Q4H PRN PRN Reason: INDIGESTION Atorvastatin Calcium (Lipitor*) 20 mg PO DAILY [facility] Last Admin: 06/05/19 08:56 Dose: 20 mg Carvedilol (Coreg Tab*) 6.25 mg PO BID [facility] Last Admin: 06/05/19 08:56 Dose: 6.25 mg Diphenhydramine HCl (Benadryl Po*) 50 mg PO BEDTIME PRN PRN Reason: INSOMNIA Last Admin: 06/04/19 02:15 Dose: 50 mg Ibuprofen (Motrin Tab*) 600 mg PO Q6H PRN PRN Reason: PAIN - MILD Last Admin: 06/04/19 15:19 Dose: 600 mg Lorazepam (Ativan Tab(*)) 0.5 mg PO Q6H PRN PRN Reason: ANXIETY Last Admin: 06/05/19 02:23 Dose: 0.5 mg Multivitamins/Minerals (Theragran/Minerals Tab*) 1 tab PO DAILY [facility] Last Admin: 06/05/19 08:55 Dose: 1 tab Olanzapine (Zyprexa *Odt*) 10 mg PO Q8H PRN PRN Reason: AGITATION Paliperidone (Invega Er Tab*) 6 mg PO 2100 [facility] Last Admin: 06/04/19 20:08 Dose: Not Given - Discharge Plan Discharge Plan: Inpatient Hospitalization
[2019-06-05] MEDS: Ibuprofen TAB* 600 MG PO PRN ×2 (16:45→23:45)
[2019-06-05] MEDS: Paliperidone ER TAB* 6 MG TAB.ER PO SCH (22:04)
[2019-06-06] MEDS: Carvedilol TAB* 6.25 MG PO SCH ×2 (09:18→20:59)
[2019-06-06] MEDS: Atorvastatin* 20 MG TAB PO SCH (09:18)
[2019-06-06] MEDS: Multivitamins/Minerals TAB PO SCH (09:18)
[2019-06-06] MEDS ORDERED: CMCS:OMEGA-3 FATTY ACIDS (NF) 1,000 MG CAP PO SCH (11:00)
[2019-06-06] MEDS: Ibuprofen TAB* 600 MG PO PRN ×2 (11:33→22:12)
--- NOTE | 2019-06-06 11:45 | PN ---
Subjective - Subjective Date of Service: 06/06/19 Service Type: [id number] Hosp care 35 min high complexity Subjective: Nursing Report: Patient was visible on unit, making inappropriate comments to staff CC: "I dont need to be here" Patient was seen and evaluated in the common room. The patient reported he needs to be discharged. Patient was informed that he will see Judge Garcia on the and responded saying he doesnt want to see judge Garcia anymore and that he will take hydroxyzine to be discharged. Patient refuse all anti psychotic medications offered. Per staff patient harassing peers, making racial slurs and is unable to respect boundaries. Objective - General Observations Appearance: Disheveled Appears Stated Age: Yes Stature: WNL Posture: Tense Eye Contact: Intense Behavior/Activity: Peculiar, Impulsive, Agitated - Interaction Observations Attitude Towards Examiner: Uncooperative, Defensive, Demanding, Hostile, Ingratiating Stated Mood: Elevated Affect: Blunted Speech Pattern/Tone: Perseverating Thought Process: Loose Associations Perception: Derealization Thought Content: Preoccupation/Ruminations Hallucination Type: Denies Delusion Type: Denies - Cognitive Function Orientation: A&O x 4 Level of Consciousness: Awake Insight: Mostly Blames Others for Problems, Difficulty Acknowledging Presence of Psyciatric Problems Ability to Make Reasonable Decisions: Serverely Impaired - Medication Compliance Cooperative with Inpatient Medication Regimen: No - Group Participation Participates in Group Activities: No Assessment - Assessment Merits Inpatient Hospitalization: For Immediate Safety Inpatient DSM-V Dx: F25.0 Clinical Impression: 63 year old with history of bipolar disorder came to the hospital with disorganized behavior and was admitted to the B[facility] at [facility]. Plan - Plan Treatment Plan: Name: NIGEL FISCHER Birthdate: 1955 [id number] # Q15 minute observation. # At this time restrict from groups due to disruption. # Patient is minimizing symptoms and provides inaccurate medical and psychiatric history # The patient requires psychiatric inpatient admission at this time to assure safety, receive treatment and work toward stabilization. # ECHO results completed and results show diastolic heart failure and mild thickness see report for more details, consultants recommend outpatient follow up. Consult recommendations in place # Obtained collateral information from mother and his brother Heriberto # Collaboration with Social Work # CT brain with and without contrast completed and showed no intracranial abnormality # Continue Invega 6mg po qhs # Hydroxyzine 25mg qhs # Patient continues to refuse medications. TOO paperwork completed and court planed for June 11 at 2pm # Once tolerability established will consider Invega long acting injection to increase compliance. # Patient has multiple hospitalizations and displays chronic and persistent mental illness requiring state hospitalization. #Goals before discharge include: Psychiatric stabilization Tentative Discharge: Pending psychiatric stabilization Sodium 134 mmol/L (135-145) L 05/29/19 05:12 Potassium 3.6 mmol/L (3.5-5.0) 05/29/19 05:12 BUN 17 mg/dL (6-24) 05/29/19 05:12 Creatinine 0.75 mg/dL (0.67-1.17) 05/29/19 05:12 Hemoglobin A1c 5.8 % (4.0-5.6) H 05/30/19 07:41 Calcium 9.7 mg/dL (8.6-10.3) 05/29/19 05:12 AST 50 U/L (13-39) H 05/29/19 05:12 ALT 41 U/L (7-52) 05/29/19 05:12 Triglycerides 116 mg/dL 05/30/19 07:41 Cholesterol 153 mg/dL 05/30/19 07:41 LDL Cholesterol 83 mg/dL 05/30/19 07:41 Continued Medication Management: Continue Outpt Medication Medications: Current Medications Al Hydrox/Mg Hydrox/Simethicone (Maalox Plus*) 30 ml PO Q4H PRN PRN Reason: INDIGESTION Atorvastatin Calcium (Lipitor*) [address] [facility] Last Admin: 06/06/19 09:18 Dose: 20 mg Carvedilol (Coreg Tab*) 6.25 mg PO BID [facility] Last Admin: 06/06/19 09:18 Dose: 6.25 mg Diphenhydramine HCl (Benadryl Po*) 50 mg PO BEDTIME PRN PRN Reason: INSOMNIA Last Admin: 06/04/19 02:15 Dose: 50 mg Fish Oil (Fish Oil (Nf)) 1,[address] [facility]; Protocol Last Admin: 06/06/19 11:34 Dose: 1,000 mg Hydroxyzine HCl (Atarax Tab*) 25 mg PO 2100 [facility] Ibuprofen (Motrin Tab*) 600 mg PO Q6H PRN PRN Reason: PAIN - MILD Last Admin: 12/18/19 11:33 Dose: 600 mg Lorazepam (Ativan Tab(*)) 0.5 mg PO Q6H PRN PRN Reason: ANXIETY Last Admin: 06/05/19 02:23 Dose: 0.5 mg Multivitamins/Minerals (Theragran/Minerals Tab*) 1 tab PO DAILY [facility] Last Admin: 06/06/19 09:18 Dose: 1 tab Olanzapine (Zyprexa *Odt*) 10 mg PO Q8H PRN PRN Reason: AGITATION Paliperidone (Invega Er Tab*) 6 mg PO 2100 [facility] Last Admin: 06/05/19 22:04 Dose: Not Given - Discharge Plan Discharge Plan: Inpatient Hospitalization
[2019-06-06] MEDS ORDERED: LORazepam TAB(*) 1 MG ONE (14:50)
[2019-06-06] MEDS: Paliperidone ER TAB* 6 MG TAB.ER PO SCH (20:58)
[2019-06-06] MEDS: hydrOXYzine HCL TAB* 25 MG PO SCH (20:59)
[2019-06-06] MEDS: LORazepam TAB(*) 0.5 MG PO PRN (22:12)
[2019-06-07] MEDS: Multivitamins/Minerals TAB PO SCH (07:33)
[2019-06-07] MEDS: PTO:OMEGA-3 FATTY ACIDS (NF) 1,000 MG CAP PO SCH (07:35)
[2019-06-07] MEDS: Carvedilol TAB* 6.25 MG PO SCH ×2 (09:06→20:36)
[2019-06-07] MEDS: Atorvastatin* 20 MG TAB PO SCH (09:08)
[2019-06-07] MEDS: Aspirin TAB* 325 MG PO PRN (11:09)
[2019-06-07] MEDS: LORazepam TAB(*) 0.5 MG PO PRN ×2 (13:40→20:38)
[2019-06-07] MEDS: Paliperidone ER TAB* 6 MG TAB.ER PO SCH (20:44)
[2019-06-07] MEDS: hydrOXYzine HCL TAB* 25 MG PO SCH (20:44)
[2019-06-08] MEDS: Multivitamins/Minerals TAB PO SCH (08:47)
[2019-06-08] MEDS: Carvedilol TAB* 6.25 MG PO SCH ×2 (08:47→22:35)
[2019-06-08] MEDS: PTO:OMEGA-3 FATTY ACIDS (NF) 1,000 MG CAP PO SCH (08:47)
[2019-06-08] MEDS: Atorvastatin* 20 MG TAB PO SCH (08:47)
[2019-06-08] MEDS: LORazepam TAB(*) 0.5 MG PO PRN (09:49)
[2019-06-08] MEDS ORDERED: LORazepam TAB(*) 1 MG PO PRN (10:07)
--- NOTE | 2019-06-08 10:08 | PN ---
Subjective - Subjective Date of Service: 06/08/19 Service Type: [id number] Hosp care 35 min high complexity Subjective: Nursing Report: Patient was visible on unit, disruptive and hostile and yelling and threatening staff CC: "I want to be discharged" Patient was seen and evaluated in the common room. The patient was banging on the doors of the social work office and refused to follow re-direction. He threatened staff members. He took po zyprexa 10mg. Patient wrote inappropriate things on construction wall. Patient continues to harass other peers on the unit. Objective - General Observations Appearance: Disheveled Appears Stated Age: Yes Stature: WNL Posture: Rigid Eye Contact: Intense Behavior/Activity: Peculiar, Impulsive, Agitated - Interaction Observations Attitude Towards Examiner: Uncooperative, Defensive Stated Mood: Anxious Affect: Restricted Speech Pattern/Tone: Rambling Thought Process: Disorganized Perception: Derealization Thought Content: Grandiose Thought Process: Lethality: Paranoid Ideation Hallucination Type: None Delusion Type: Grandeur - Cognitive Function Orientation: A&O x 4 Level of Consciousness: Awake Ability to Make Reasonable Decisions: Serverely Impaired - Medication Compliance Cooperative with Inpatient Medication Regimen: No - Group Participation Participates in Group Activities: No Assessment - Assessment Merits Inpatient Hospitalization: For Immediate Safety Inpatient DSM-V Dx: F25.0 Clinical Impression: 63 year old with history of bipolar disorder came to the hospital with disorganized behavior and was admitted to the BSU at [facility]. Plan - Plan Treatment Plan: Name: NIGEL FISCHER Birthdate: 1955 [id number] # Q15 minute observation. # At this time restrict from groups due to disruption. # Patient is minimizing symptoms and provides inaccurate medical and psychiatric history # The patient requires psychiatric inpatient admission at this time to assure safety, receive treatment and work toward stabilization. # ECHO results completed and results show diastolic heart failure and mild thickness see report for more details, consultants recommend outpatient follow up. Consult recommendations in place # Obtained collateral information from mother and his brother Heriberto # Collaboration with Social Work # CT brain with and without contrast completed and showed no intracranial abnormality # Continue Invega 6mg po qhs # Hydroxyzine 25mg qhs # Patient continues to refuse medications. TOO paperwork completed and court planed for June 11 at 10am # Once tolerability established will consider Invega long acting injection to increase compliance. # Patient has multiple hospitalizations and displays chronic and persistent mental illness requiring state hospitalization. #Goals before discharge include: Psychiatric stabilization Tentative Discharge: Pending psychiatric stabilization Sodium 134 mmol/L (135-145) L 05/29/19 05:12 Potassium 3.6 mmol/L (3.5-5.0) 05/29/19 05:12 BUN 17 mg/dL (6-24) 05/29/19 05:12 Creatinine 0.75 mg/dL (0.67-1.17) 05/29/19 05:12 Hemoglobin A1c 5.8 % (4.0-5.6) H 05/30/19 07:41 Calcium 9.7 mg/dL (8.6-10.3) 05/29/19 05:12 AST 50 U/L (13-39) H 05/29/19 05:12 ALT 41 U/L (7-52) 05/29/19 05:12 Triglycerides 116 mg/dL 05/30/19 07:41 Cholesterol 153 mg/dL 05/30/19 07:41 LDL Cholesterol 83 mg/dL 05/30/19 07:41 Continued Medication Management: Continue Outpt Medication Medications: Current Medications Al Hydrox/Mg Hydrox/Simethicone (Maalox Plus*) 30 ml PO Q4H PRN PRN Reason: INDIGESTION Aspirin (Aspirin Tab*) 650 mg PO Q8H PRN PRN Reason: PAIN - MILD Last Admin: 06/07/19 11:09 Dose: 650 mg Atorvastatin Calcium (Lipitor*) 20 mg PO DAILY [facility] Last Admin: 06/08/19 08:47 Dose: 20 mg Carvedilol (Coreg Tab*) 6.25 mg PO BID [facility] Last Admin: 06/08/19 08:47 Dose: 6.25 mg Diphenhydramine HCl (Benadryl Po*) 50 mg PO BEDTIME PRN PRN Reason: INSOMNIA Last Admin: 06/04/19 02:15 Dose: 50 mg Fish Oil (Fish Oil (Nf)) 1,000 mg PO DAILY [facility]; Protocol Last Admin: 06/08/19 08:47 Dose: 1,000 mg Hydroxyzine HCl (Atarax Tab*) 25 mg PO 2100 [facility] Last Admin: 06/07/19 20:44 Dose: Not Given Lorazepam (Ativan Tab(*)) 1 mg PO Q6H PRN PRN Reason: ANXIETY Multivitamins/Minerals (Theragran/Minerals Tab*) 1 tab PO DAILY [facility] Last Admin: 06/08/19 08:47 Dose: 1 tab Olanzapine (Zyprexa *Odt*) 10 mg PO Q8H PRN PRN Reason: AGITATION Paliperidone (Invega Er Tab*) 6 mg PO 2100 [facility] Last Admin: 06/07/19 20:44 Dose: Not Given - Discharge Plan Discharge Plan: Inpatient Hospitalization
[2019-06-08] MEDS: LORazepam TAB(*) 1 MG PO PRN ×2 (14:41→22:36)
[2019-06-08] MEDS: Lithium Carbonate TAB* 300 MG PO SCH (22:44)
[2019-06-08] MEDS: Paliperidone ER TAB* 6 MG TAB.ER PO SCH (22:44)
[2019-06-08] MEDS: hydrOXYzine HCL TAB* 50 MG PO SCH (22:44)
[2019-06-09] MEDS: PTO:OMEGA-3 FATTY ACIDS (NF) 1,000 MG CAP PO SCH (07:57)
[2019-06-09] MEDS: Carvedilol TAB* 6.25 MG PO SCH ×2 (07:57→20:26)
[2019-06-09] MEDS: Multivitamins/Minerals TAB PO SCH (07:57)
[2019-06-09] MEDS: Atorvastatin* 20 MG TAB PO SCH (07:57)
[2019-06-09] MEDS: Lithium Carbonate TAB* 300 MG PO SCH ×2 (07:57→23:43)
[2019-06-09] MEDS: LORazepam TAB(*) 1 MG PO PRN ×3 (09:22→22:55)
[2019-06-09] MEDS: Aspirin TAB* 325 MG PO PRN ×2 (11:43→20:25)
[2019-06-09] MEDS: hydrOXYzine HCL TAB* 50 MG PO SCH (22:55)
[2019-06-09] MEDS: Paliperidone ER TAB* 6 MG TAB.ER PO SCH (23:43)
[2019-06-10] MEDS: Multivitamins/Minerals TAB PO SCH (07:59)
[2019-06-10] MEDS: Carvedilol TAB* 6.25 MG PO SCH ×2 (07:59→21:01)
[2019-06-10] MEDS: Atorvastatin* 20 MG TAB PO SCH (07:59)
[2019-06-10] MEDS: Lithium Carbonate TAB* 300 MG PO SCH ×2 (08:00→21:04)
[2019-06-10] MEDS: PTO:OMEGA-3 FATTY ACIDS (NF) 1,000 MG CAP PO SCH (08:00)
[2019-06-10] MEDS: LORazepam TAB(*) 1 MG PO PRN ×2 (12:47→21:59)
[2019-06-10] MEDS: Aspirin TAB* 325 MG PO PRN (14:34)
[2019-06-10] MEDS: Paliperidone ER TAB* 6 MG TAB.ER PO SCH (21:05)
[2019-06-10] MEDS: hydrOXYzine HCL TAB* 50 MG PO SCH (22:14)
[2019-06-11] MEDS: Multivitamins/Minerals TAB PO SCH (08:44)
[2019-06-11] MEDS: Carvedilol TAB* 6.25 MG PO SCH (08:44)
[2019-06-11] MEDS: Atorvastatin* 20 MG TAB PO SCH (08:44)
[2019-06-11] MEDS: Lithium Carbonate TAB* 300 MG PO SCH (08:44)
[2019-06-11] MEDS: PTO:OMEGA-3 FATTY ACIDS (NF) 1,000 MG CAP PO SCH (08:44)
[2019-06-11] MEDS: LORazepam TAB(*) 1 MG PO PRN (08:44)
[2019-06-11 09:04] VITALS: BP 128/82
--- NOTE | 2019-06-11 10:05 | PN ---
Assessment - Assessment Inpatient DSM-V Dx: F25.0 Plan - Plan Treatment Plan: Name: NIGEL FISCHER Birthdate: 1955 [id number] Medications: Current Medications Al Hydrox/Mg Hydrox/Simethicone (Maalox Plus*) 30 ml PO Q4H PRN PRN Reason: INDIGESTION Aspirin (Aspirin Tab*) 650 mg PO Q8H PRN PRN Reason: PAIN - MILD Last Admin: 06/10/19 14:34 Dose: 325 mg Atorvastatin Calcium (Lipitor*) 20 mg PO DAILY [facility] Last Admin: 06/11/19 08:44 Dose: 20 mg Carvedilol (Coreg Tab*) 6.25 mg PO BID [facility] Last Admin: 06/11/19 08:44 Dose: 6.25 mg Fish Oil (Fish Oil (Nf)) 1,000 mg PO DAILY [facility]; Protocol Last Admin: 06/11/19 08:44 Dose: 1,000 mg Hydroxyzine HCl (Atarax Tab*) 50 mg PO 2100 [facility] Last Admin: 06/10/19 22:14 Dose: Not Given Hoffman Carbonate (Hoffman Carbonate Tab*) 300 mg PO BID [facility] Last Admin: 06/11/19 08:44 Dose: Not Given Lorazepam (Ativan Tab(*)) 1 mg PO Q4H PRN PRN Reason: ANXIETY Last Admin: 06/11/19 08:44 Dose: 1 mg Multivitamins/Minerals (Theragran/Minerals Tab*) 1 tab PO DAILY [facility] Last Admin: 06/11/19 08:44 Dose: 1 tab Olanzapine (Zyprexa *Odt*) 10 mg PO Q8H PRN PRN Reason: AGITATION Last Admin: 06/08/19 10:05 Dose: 10 mg Paliperidone (Invega Er Tab*) 6 mg PO 2100 [facility] Last Admin: 06/10/19 21:05 Dose: Not Given
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
[2019-06-11] MEDS ORDERED: hydrOXYzine HCL TAB* 25 MG PO SCH (21:00)
[2019-06-11] MEDS ORDERED: hydrOXYzine HCL TAB* 50 MG PO SCH (21:00)
== END 2019-06-11 11:50 | disposition home or self-care (01) | DRG 885 ==
LOC: EDBD → ED 04:44 → BSU 12:53
PROVIDERS: ADMIT Psychiatry & Neurology Psychiatry; ATTEND Psychiatry & Neurology Psychiatry
PROC: GZHZZZZ Group Psychotherapy (ICD-10-PCS; principal; 2019-06-01)
DX: F31.10 Bipolar disorder, current episode manic without psychotic features, unspecified (principal); I50.30 Unspecified diastolic (congestive) heart failure; I47.1 Supraventricular tachycardia; R94.31 Abnormal electrocardiogram [ECG] [EKG]; E78.5 Hyperlipidemia, unspecified; Z88.8 Allergy status to other drugs, medicaments and biological substances; Z28.21 Immunization not carried out because of patient refusal
CPT/HCPCS: 36415; 70470; 80053; 80061; 80307; 80320; 80329; 81003; 83036; 84443; 85025; 90853; 93005; 93306; 99222; 99231; 99233; 99238; 99284; A9270-GY; G0480; J1200; J1630; J2060; Q9967